=== PATIENT | female | born 1955 | race Caucasian/White ===

== ENCOUNTER 2025-04-30 13:32 | Emergency (ER) | payer MEDICARE, MEDICAID ==
[~2025-04-30] VITALS: Ht 167.6 cm; Wt 92.5 kg
[2025-04-30 14:21] LABS: BASOPHILS # (AUTO) 0.1 K/uL (0.0-0.2); BASOPHILS % (AUTO) 0.7 % (0.0-2.0); EOSINOPHILS # (AUTO) 0.4 K/uL (0.0-0.7); EOSINOPHILS % (AUTO) 5.5 % (0.0-6.0); HEMATOCRIT 38 % (33-45); HEMOGLOBIN 12.8 g/dL (11.5-14.8); LYMPHOCYTES # (AUTO) 2.3 K/uL (0.8-4.8); MEAN CORPUSCULAR HEMOGLOBIN 31 PG (26.0-33.0); MEAN CORPUSCULAR HGB CONC 34 g/dl (31.0-36.0); MEAN CORPUSCULAR VOLUME 93 fL (82-100); MONOCYTES # (AUTO) 0.4 K/uL (0.1-1.30); MONOCYTES % (AUTO) 4.7 % (2.0-12.0); NEUTROPHILS # (AUTO) 4.6 K/uL (1.8-8.9); NEUTROPHILS % (AUTO) 59.1 % (43.0-81.0); PLATELET COUNT (AUTO) 185 K/uL (150-450); RED CELL DISTRIBUTION WIDTH 14.8 % (11.5-15.0); WHITE BLOOD COUNT (AUTO) 7.8 K/uL (4.3-11.0)
[2025-04-30 14:29] LABS: CALCIUM, SERUM 8.9 mg/dL (8.5-10.1); CARBON DIOXIDE 25 mmol/L (21-32); CHLORIDE 104 mmol/L (98-107); CREATININE 1.4 mg/dL (0.6-1.3); GLUCOSE 155 mg/dL (74-106); POTASSIUM 3.7 mmol/L (3.5-5.1); SODIUM SERUM 140 mmol/L (136-145); UREA NITROGEN, BLOOD 17 mg/dL (7-18)
[2025-04-30] MEDS ORDERED: KETOROLAC TROMETHAMINE 15 MG/ML VIAL ONE (15:00)
[2025-04-30] MEDS: KETOROLAC TROMETHAMINE 15 MG/ML VIAL IV ONE (15:05)
[2025-04-30 19:20] VITALS: BP 160/75; TEMP 98.5; O2SAT 98
== END 2025-04-30 17:51 | disposition home or self-care (01) ==
LOC: ER 13:45
DX: R07.89 Other chest pain (principal); I11.0 Hypertensive heart disease with heart failure; E11.9 Type 2 diabetes mellitus without complications; G20.A1 Parkinson's disease without dyskinesia, without mention of fluctuations; I50.9 Heart failure, unspecified; K20.90 Esophagitis, unspecified without bleeding
CPT/HCPCS: 99285; 96374; 71045; 93005 ×2; 85025; 80048; 36415; 84484 ×2; J1885

== ENCOUNTER 2025-07-03 16:24 | Emergency (ER) | payer MEDICARE, MEDICAID ==
[~2025-07-03] VITALS: Ht 167.6 cm; Wt 92.5 kg
[2025-07-03] MEDS ORDERED: MECLIZINE HCL 25 MG TABLET PO ONE (17:00)
[2025-07-03 17:07] LABS: PLATELET COUNT (AUTO) 213 K/uL (150-450); RED BLOOD CELL COUNT(AUTO) 4.35 MIL/uL (4.0-5.2); RED CELL DISTRIBUTION WIDTH 15.2 % (11.5-15.0); WHITE BLOOD COUNT (AUTO) 8.1 K/uL (4.3-11.0)
[2025-07-03 17:21] LABS: ASPARTATE AMINOTRANSFERASE 18.0 U/L (15-37); CALCIUM, SERUM 9.7 mg/dL (8.5-10.1); CREATININE 1.3 mg/dL (0.6-1.3); SODIUM SERUM 138.0 mmol/L (136-145); TOTAL PROTEIN, SERUM 8.2 g/dL (6.4-8.2); UREA NITROGEN, BLOOD 24.0 mg/dL (7-18)
[2025-07-03] MEDS ORDERED: IOHEXOL-300 100 ML VIAL IV ONE (17:32)
[2025-07-03] MEDS ORDERED: IV NS 0.9% 250 ML IV ONE (17:33)
[2025-07-03] MEDS ORDERED: KETOROLAC TROMETHAMINE 15 MG/ML VIAL ONE (17:34)
[2025-07-03] MEDS ORDERED: METOCLOPRAMIDE HCL 10 MG/2 ML VIAL ONE (17:34)
[2025-07-03] MEDS: METOCLOPRAMIDE HCL 10 MG/2 ML VIAL IV ONE (17:55)
[2025-07-03] MEDS: IV NS 0.9% 1,000 ML BAG IV ONE (17:55)
[2025-07-03] MEDS: KETOROLAC TROMETHAMINE 15 MG/ML VIAL IV ONE (18:00)
[2025-07-03] MEDS ORDERED: ONDANSETRON HCL/PF 4 MG/2 ML VIAL ONE (18:31)
[2025-07-03] MEDS: ONDANSETRON HCL/PF 4 MG/2 ML VIAL IV ONE (18:40)
[2025-07-03 21:24] LABS: APPEARANCE,URINE SLIGHTLY CLOUDY (CLEAR); BLOOD, URINE NEGATIVE Ery/uL (NEGATIVE); LEUKOCYTE ESTERASE ,URINE NEGATIVE (NEGATIVE); NITRITE, URINE NEGATIVE (NEGATIVE); UGLUCOSE NEGATIVE (NEGATIVE)
[2025-07-03 21:45] LABS: ADD URINE CULTURE YES; SQUAMOUS EPITHELIAL CELL,UR Many /HPF (None Seen)
[2025-07-03 21:53] VITALS: BP 103/77; TEMP 98; O2SAT 98
== END 2025-07-03 21:53 | disposition home or self-care (01) ==
LOC: ER 16:40
DX: R10.9 Unspecified abdominal pain (principal); R11.2 Nausea with vomiting, unspecified; R19.7 Diarrhea, unspecified; I10 Essential (primary) hypertension; G20.A1 Parkinson's disease without dyskinesia, without mention of fluctuations; E11.9 Type 2 diabetes mellitus without complications; Z87.11 Personal history of peptic ulcer disease; Z87.19 Personal history of other diseases of the digestive system
CPT/HCPCS: 99285; 74177; 96374; 96361; 96375; 93005; 85025; 83690; 81001; 36415; 80053; J1885; J2765; J2405; J7030 ×2; J7050; Q9967

== ENCOUNTER 2025-10-10 13:04 | Emergency (ER) | payer MEDICARE, MEDICAID ==
[~2025-10-10] VITALS: Ht 167.6 cm; Wt 97.5 kg
[2025-10-10] MEDS ORDERED: MORPHINE SULFATE INJ 4 MG/ML DISP.SYRIN ONE (13:24)
[2025-10-10] MEDS ORDERED: ONDANSETRON HCL/PF 4 MG/2 ML VIAL ONE (13:24)
[2025-10-10] MEDS: IV NS 0.9% 500 ML BAG IV ONE (13:36)
[2025-10-10] MEDS: ONDANSETRON HCL/PF 4 MG/2 ML VIAL IVP ONE (13:36)
[2025-10-10] MEDS: MORPHINE SULFATE INJ 2 MG/ML DISP.SYRIN IV ONE (13:36)
[2025-10-10 13:47] LABS: PLATELET COUNT (AUTO) 209 K/uL (150-450); RED BLOOD CELL COUNT(AUTO) 3.97 MIL/uL (4.0-5.2); RED CELL DISTRIBUTION WIDTH 15.2 % (11.5-15.0); WHITE BLOOD COUNT (AUTO) 11.2 K/uL (4.3-11.0)
[2025-10-10 13:54] LABS: CALCIUM, SERUM 8.8 mg/dL (8.5-10.1); CREATININE 1.3 mg/dL (0.6-1.3); SODIUM SERUM 137.0 mmol/L (136-145); UREA NITROGEN, BLOOD 20.0 mg/dL (7-18)
[2025-10-10] MEDS ORDERED: CYCLOBENZAPRINE 10 MG TABLET ONE (14:34)
[2025-10-10] MEDS ORDERED: KETOROLAC TROMETHAMINE 15 MG/ML VIAL ONE (14:34)
[2025-10-10] MEDS ORDERED: LIDOCAINE 5% (PATCH) 1 EA PATCH TP ONE (14:34)
[2025-10-10] MEDS: KETOROLAC TROMETHAMINE 15 MG/ML VIAL IV ONE (14:42)
[2025-10-10] MEDS: LIDOCAINE 5% (PATCH) 1 EA PATCH TP SCH (14:42)
[2025-10-10] MEDS: CYCLOBENZAPRINE 10 MG TABLET PO ONE (14:42)
[2025-10-10] MEDS ORDERED: KETO10TA2 PO (15:34)
[2025-10-10] MEDS ORDERED: CYCL5TAB PO (15:34)
[2025-10-10] MEDS ORDERED: PRED50TA PO (15:34)
[2025-10-10] MEDS ORDERED: LIDO30AD10 TP (15:34)
[2025-10-10 16:01] VITALS: BP 145/76; TEMP 98.7; O2SAT 99
== END 2025-10-10 16:02 | disposition home or self-care (01) ==
LOC: ER 13:07
DX: M54.41 Lumbago with sciatica, right side (principal); G20.A1 Parkinson's disease without dyskinesia, without mention of fluctuations; E11.22 Type 2 diabetes mellitus with diabetic chronic kidney disease; I13.10 Hypertensive heart and chronic kidney disease without heart failure, with stage 1 through stage 4 chronic kidney disease, or unspecified chronic kidney disease; J84.10 Pulmonary fibrosis, unspecified; K20.90 Esophagitis, unspecified without bleeding; Z79.52 Long term (current) use of systemic steroids
CPT/HCPCS: 99284; 96374; 96375; 85025; 80048; 36415; J1885; J2919; J2270; J2405; J7040